=== PATIENT | female | born 1945 | race Caucasian/White ===

== ENCOUNTER 2017-11-04 08:16 | Emergency (ER) | payer OTHER ==
[~2017-11-04] VITALS: Ht 157.5 cm; Wt 79.8 kg
[2017-11-04 08:20] VITALS: Ht 157.5 cm; Wt 79.8 kg
[2017-11-04 11:26] VITALS: BP 134/78
== END 2017-11-04 11:26 | disposition home or self-care (01) ==
LOC: ED 08:16
DX: L03.113 Cellulitis of right upper limb (principal); I10 Essential (primary) hypertension; E11.9 Type 2 diabetes mellitus without complications
CPT/HCPCS: J3490

== ENCOUNTER 2017-11-05 09:23 | Emergency (ER) | payer OTHER ==
[~2017-11-05] VITALS: Ht 152.4 cm; Wt 79.4 kg
[2017-11-05 09:30] VITALS: Ht 152.4 cm; Wt 79.4 kg
[2017-11-05 10:54] VITALS: BP 122/65
== END 2017-11-05 10:54 | disposition home or self-care (01) ==
LOC: ED 09:23
DX: L03.113 Cellulitis of right upper limb (principal); I10 Essential (primary) hypertension; E11.9 Type 2 diabetes mellitus without complications
CPT/HCPCS: J0690; Q0092

== ENCOUNTER 2017-11-05 18:01 | Emergency (ER) | payer OTHER ==
[~2017-11-05] VITALS: Ht 152.4 cm; Wt 79.4 kg
[2017-11-05 18:15] VITALS: Ht 152.4 cm; Wt 79.4 kg
[2017-11-05 21:00] LABS: BASOPHIL % 0.6 % (0-2); PLATELET COUNT 257 x10^3mcL (130-400)
[2017-11-05 21:02] LABS: RED CELL DISTRIBUTION WIDTH 14.9 % (11.5-14.5)
[2017-11-05 21:04] LABS: CALCIUM 9.4 mg/dL (8.5-10.1); CARBON DIOXIDE 31.5 mmol/L (21-32); CHLORIDE SERUM 95 mmol/L (98-107); CREATININE SERUM 0.8 mg/dL (0.6-1.0); GLUCOSE SERUM 148 mg/dL (74-106); POTASSIUM SERUM 4.3 mmol/L (3.5-5.1); SODIUM SERUM 134 mmol/L (136-145)
[2017-11-05 21:08] LABS: ALBUMIN 3.9 g/dL (3.4-5.0); ALKALINE PHOSPHATASE 85 U/L (46-116); ALT/SGPT 37 U/L (14-59); AST/SGOT 23 U/L (15-37); BILIRUBIN TOTAL 0.53 mg/dL (0.20-1.00)
[2017-11-05 21:09] LABS: TOTAL PROTEIN, SERUM 8.6 g/dL (6.4-8.2)
[2017-11-05 22:00] VITALS: BP 131/74
== END 2017-11-05 22:00 | disposition home or self-care (01) ==
LOC: ED 18:01
PROVIDERS: Emergency Medicine
DX: L03.113 Cellulitis of right upper limb (principal); I10 Essential (primary) hypertension; E11.9 Type 2 diabetes mellitus without complications; I63.9 Cerebral infarction, unspecified; Z85.3 Personal history of malignant neoplasm of breast
CPT/HCPCS: 36415; J7030

== ENCOUNTER 2017-11-06 15:44 | Emergency (ER) | payer OTHER ==
[2017-11-06 18:45] VITALS: BP 130/73
== END 2017-11-06 18:46 | disposition home or self-care (01) ==
LOC: ED 15:44
DX: L03.113 Cellulitis of right upper limb (principal); I10 Essential (primary) hypertension; E11.9 Type 2 diabetes mellitus without complications; E78.00 Pure hypercholesterolemia, unspecified

== ENCOUNTER 2020-02-18 13:03 | Emergency (ER) | payer OTHER ==
[~2020-02-18] VITALS: Ht 157.5 cm; Wt 81.6 kg
[2020-02-18 13:30] VITALS: Ht 157.5 cm; Wt 81.6 kg
[2020-02-18 14:54] VITALS: BP 161/73
== END 2020-02-18 13:30 | disposition home or self-care (01) ==
LOC: ED 13:03
DX: S61.215A Laceration without foreign body of left ring finger without damage to nail, initial encounter (principal); I10 Essential (primary) hypertension; E11.9 Type 2 diabetes mellitus without complications; Z86.73 Personal history of transient ischemic attack (TIA), and cerebral infarction without residual deficits; Z85.3 Personal history of malignant neoplasm of breast; W22.8XXA Striking against or struck by other objects, initial encounter; Y93.89 Activity, other specified; Y92.89 Other specified places as the place of occurrence of the external cause; Y99.8 Other external cause status
CPT/HCPCS: 90715; A4570; J2001; Q0092